=== PATIENT | male | born 1950 | race Caucasian/White ===

== ENCOUNTER 2021-04-20 15:41 | Emergency (ER) | payer OTHER ==
[~2021-04-20] VITALS: Ht 167.6 cm; Wt 79.4 kg
[2021-04-20 16:06] LABS: ABSOLUTE NEUTROPHILS 5.4 thou/uL (1.4-8.2); BASOPHILS 0.4 % (0.0-2.0); EOSINOPHILS 1.6 % (0.0-3.0); HEMATOCRIT 42.3 % (42.0-52.0); HEMOGLOBIN 14.2 gm/dL (14.0-18.0); LYMPHOCYTES 26.5 % (24.0-44.0); MCH 30.4 pg (26.0-34.0); MCHC 33.5 g/dL (28.0-37.0); MCV 90.9 fL (80.0-100.0); MONOCYTES 7.9 % (1.0-8.0); PLATELET COUNT 308 thou/uL (150-400); POLYS 63.6 % (36.0-66.0); RBC 4.66 mil/uL (4.50-6.00); RDW 13.6 % (10.5-14.5); WBC 8.5 thou/uL (4.0-11.0)
[2021-04-20 16:10] LABS: ANION GAP 12 mmol/L (7-16); BUN 12 mg/dL (7-18); CHLORIDE 108 mmol/L (98-107); CO2 22 mmol/L (21-32); CREATININE 1.1 mg/dL (0.7-1.3); GLUCOSE 167 mg/dL (74-106); POTASSIUM 3.4 mmol/L (3.5-5.1); SODIUM 142 mmol/L (136-145)
[2021-04-20 16:20] LABS: ALBUMIN 3.7 g/dL (3.4-5.0); LIPASE 86 U/L (73-393); SGOT 20 U/L (15-37); SGPT 24 U/L (16-63); TOTAL BILIRUBIN 0.4 mg/dL (0.2-1.0); TOTAL PROTEIN 7.6 g/dL (6.4-8.2)
[2021-04-20 18:15] LABS: URINE BILIRUBIN NEGATIVE (Negative); URINE BLOOD NEGATIVE (Negative); URINE CLARITY CLEAR; URINE COLOR YELLOW; URINE GLUCOSE-RANDOM* NEGATIVE (Negative); URINE KETONES NEGATIVE (Negative); URINE LEUKOCYTES-REFLEX NEGATIVE (Negative); URINE NITRITE-REFLEX NEGATIVE (Negative); URINE PROTEIN (DIPSTICK) NEGATIVE (Negative); URINE UROBILINOGEN 0.2 E.U./dl (0.2-1.0)
[2021-04-20] MEDS ORDERED: NORCO5 PO (19:01)
[2021-04-20 19:09] VITALS: BP 124/79
--- NOTE | 2021-04-21 08:17 | EKG ---
[place] [address] [facility] [employer] [address] ELECTROCARDIOGRAM REPORT Name: PRADEEP BOWEN Room #: DEP TONO Cortes#: [id number] Admission: 04/20/21 Attend Phys: Discharge: 04/20/21 Date of : 54 Report #: [id number] [facility] ED Test Date: 2021-04-20 Test Time: 16:19:42 Pat Name: PRADEEP BOWEN Department: Room: Gender: M [employer]: CINTIA : 1950 Requested By: Brown Levine Order Number: [id number] MD: Kunal Rios Measurements Intervals [place] Rate: 87 P: 49 RI: 162 QRS: 8 QRSD: 95 T: 37 QT: 374 QTc: 450 Interpretive Statements Sinus rhythm Abnormal R-wave progression, early transition No previous ECG available for comparison Electronically Signed On 04-21-2021 8:17:35 CDT by Kunal Riso [email or web address] <ELECTRONICALLY SIGNED> By: Kunal Rios MD, [facility] 04/21/21 0817 1619 1619 Kunal [email or web address] MD, FACC /EPI
== END 2021-04-20 19:09 | disposition home or self-care (01) ==
LOC: ER 15:41
PROVIDERS: Emergency Medicine
DX: S32.009A Unspecified fracture of unspecified lumbar vertebra, initial encounter for closed fracture (principal); W11.XXXA Fall on and from ladder, initial encounter; Y93.89 Activity, other specified; Y92.89 Other specified places as the place of occurrence of the external cause; Y99.8 Other external cause status